=== PATIENT | female | born 1975 | race Caucasian/White ===

== ENCOUNTER 2025-01-18 16:25 | Emergency (ER) | payer OTHER ==
[~2025-01-18] VITALS: Ht 154.9 cm; Wt 72.6 kg
[2025-01-18 17:22] LABS: PLATELET COUNT (AUTO) 318 K/uL (179-408); RED BLOOD CELL COUNT(AUTO) 4.17 MIL/uL (3.63-4.92); RED CELL DISTRIBUTION WIDTH 13.3 % (12.3-17.7); WHITE BLOOD COUNT (AUTO) 11.9 K/uL (3.8-11.8)
[2025-01-18 17:23] LABS: *BILIRUBIN,URIN NEGATIVE (NEGATIVE); *BLOOD, URINE 2+ (NEGATIVE); *CLARITY,URINE CLEAR (CLEAR); *KETONES,URINE NEGATIVE (NEGATIVE); *PROTEIN,URINE NEGATIVE (NEGATIVE); *UROBILINOGEN,URINE 0.2 E.U./dl (NORMAL); LEUKOCYTE ESTERASE ,URINE NEGATIVE (NEGATIVE); NITRITE, URINE NEGATIVE (NEGATIVE); UGLUCOSE NEGATIVE (NEGATIVE)
[2025-01-18 17:27] LABS: *COLOR,URINE LIGHT YELLOW (YELLOW)
[2025-01-18 17:28] LABS: *URINE HCG, QUAL NEGATIVE (NEGATIVE)
[2025-01-18 17:31] LABS: CREATININE 0.6 mg/dL (0.6-1.3); SODIUM SERUM 140.0 mmol/L (136-145); UREA NITROGEN, BLOOD 10.0 mg/dL (7-18)
[2025-01-18 17:35] LABS: SQUAMOUS EPITHELIAL CELL,UR FEW /HPF (NONE SEEN)
[2025-01-18 17:42] LABS: ASPARTATE AMINOTRANSFERASE 17.0 U/L (15-37); TOTAL PROTEIN, SERUM 8.2 g/dL (6.4-8.2)
[2025-01-18] MEDS ORDERED: HYDROMORPHONE 1 MG/1 ML DISP.SYRIN ONE (18:59)
[2025-01-18] MEDS ORDERED: KETOROLAC TROMETHAMINE 15 MG INJ ONE (19:01)
[2025-01-18] MEDS ORDERED: ONDANSETRON 4 MG/2 ML VIAL ONE (19:01)
[2025-01-18] MEDS: HYDROMORPHONE 1 MG/1 ML DISP.SYRIN IV ONE (19:05)
[2025-01-18] MEDS: ONDANSETRON 4 MG/2 ML VIAL IV ONE (19:05)
[2025-01-18] MEDS: KETOROLAC TROMETHAMINE 15 MG INJ IVP ONE (19:05)
[2025-01-18] MEDS ORDERED: SWABABLE VALVE TRANSFER SET EA MC ONE (19:07)
[2025-01-18] MEDS ORDERED: IV NORMAL SALINE 250 ML IV ONE (19:07)
[2025-01-18] MEDS ORDERED: IOHEXOL 300MG/ML 100 ML INFUS..BTL ONE (19:07)
[2025-01-18 20:42] VITALS: BP 111/51
[2025-01-18] MEDS ORDERED: HYDR-4209 PO (20:54)
[2025-01-18] MEDS ORDERED: ONDA4TAB11 PO (20:54)
[2025-01-18 21:24] VITALS: BP 111/51; TEMP 97.8; O2SAT 98
== END 2025-01-18 21:25 | disposition home or self-care (01) ==
LOC: ER 16:39
DX: R10.31 Right lower quadrant pain (principal); R10.20 Pelvic and perineal pain unspecified side; Z78.0 Asymptomatic menopausal state; Z90.710 Acquired absence of both cervix and uterus
CPT/HCPCS: 99285; 74177; 76705; 96374; 96375; 80053; 81001; 84703; 85025; 36415; 76856; J1885; J2405; Q9967; J1171; A4606; A4663